=== PATIENT | female | born 1955 | race Caucasian/White ===

== ENCOUNTER 2016-12-09 11:49 | Emergency (ER) | payer BC ==
[~2016-12-09] VITALS: Ht 165.1 cm; Wt 55.8 kg
[2016-12-09] MEDS ORDERED: CYMBALTA60 MG PO (12:00)
[2016-12-09] MEDS ORDERED: CHANTIX1 MG PO (12:00)
[2016-12-09] MEDS ORDERED: ASPIRIN81 MG PO (12:01)
[2016-12-09] MEDS ORDERED: PREDNISOLONE SO10 MG PO (13:43)
== END 2016-12-09 13:59 | disposition home or self-care (01) ==
LOC: ED 11:49
DX: G51.0 Bell's palsy (principal); Z87.891 Personal history of nicotine dependence; Z98.51 Tubal ligation status; Z79.899 Other long term (current) drug therapy; Z79.01 Long term (current) use of anticoagulants; Z79.82 Long term (current) use of aspirin
CPT/HCPCS: 99283

== ENCOUNTER 2023-01-12 18:43 | Observation (INO) | payer BC, MEDICARE ==
[~2023-01-12] VITALS: Ht 317.5 cm; Wt 47.0 kg
--- OUTSIDE RECORDS SUMMARY | ~2023-01-12 | XMS | Continuity of Care Document ---
Demographics + + + | Address | [address] | | | [place] [address] | + + + | Preferred Language | Unknown | + + + | Marital Status | Never | + + + | Adventist Affiliation | Unknown | + + + | Race | White | + + + | Ethnic Group | Unknown | + + + Author + + + | Author | [facility] | + + + | Organization | [facility] | + + + | Address | [address] | | | [place] [address] | + + + | Phone | | + + + Care Team Providers + + + + | Care Architectural Engineer Name | Role | Phone | + + + + Unavailable | Unavailable | + + + + Allergies and Intolerances + + + + + + | date | description | facility | reaction | severity | + + + + + + | (no date) | No Known | [facility] | (no reaction) | (no severity) | | | Allergies | | | | + + + + + + Encounters No information. Functional Status No information. Immunizations No information. Medications No information. Problems + + + + | date | description | facility | + + + + | 2022-05-31 09:42 | MALIGNANT NEOPLASM OF | [facility] | | | RIGHT KIDNEY, EXCEPT RENAL | | | | PELVIS | | + + + + | 2022-05-31 09:42 | SECONDARY MALIGNANT | [facility] | | | NEOPLASM OF RIGHT LUNG | | + + + + | 2022-05-31 09:42 | HYPOTHYROIDISM, | [facility] | | | UNSPECIFIED | | + + + + | 2022-06-21 10:38 | CROHN'S DISEASE, | [facility] | | | UNSPECIFIED, WITHOUT | | | | COMPLICATIONS | | + + + + | 2022-07-12 10:31 | [facility]IGNANT NEOPLASM OF | [facility] | | | RIGHT KIDNEY, EXCEPT RENAL | | | | PELVIS | | + + + + | 2022-07-12 10:31 | SECONDARY MALIGNANT | [facility] | | | NEOPLASM OF RIGHT LUNG | | + + + + | 2022-07-12 10:31 | HYPOTHYROIDISM, | [facility] | | | UNSPECIFIED | | + + + + | 2022-07-13 14:31 | MALIGNANT NEOPLASM OF | [facility] | | | RIGHT KIDNEY, EXCEPT RENAL | | | | PELVIS | | + + + + | 2022-07-13 14:31 | SECONDARY MALIGNANT | [facility] | | | NEOPLASM OF RIGHT LIOR | | + + + + | 2022-08-02 10:18 | MALIGNANT NEOPLASM OF UNSP | [facility] | | | KIDNEY, EXCEPT RENAL PE | | + + + + | 2022-08-02 10:18 | ENCOUNTER FOR | [facility] | | | ANTINEOPLASTIC CHEMOTHERAPY | | | | | | + + + + | 2022-08-23 10:05 | MALIGNANT NEOPLASM OF | [facility] | | | RIGHT KIDNEY, EXCEPT RENAL | | | | PELVIS | | + + + + | 2022-08-23 10:05 | SECONDARY MALIGNANT | [facility] | | | NEOPLASM OF RIGHT LUNG | | + + + + | 2022-09-13 10:17 | MALIGNANT NEOPLASM OF UNSP | [facility] | | | KIDNEY, EXCEPT RENAL | | | | PELVIS | | + + + + | 2022-10-04 10:42 | MALIGNANT NEOPLASM OF UNSP | [facility] | | | KIDNEY, EXCEPT RENAL | | | | PELVIS | | + + + + | 2022-10-04 10:42 | ENCOUNTER FOR | [facility] | | | ANTINEOPLASTIC CHEMOTHERAPY | | | | | | + + + + | 2022-10-25 10:19 | MALIGNANT NEOPLASM OF | [facility] | | | RIGHT KIDNEY, EXCEPT RENAL | | | | PELVIS | | + + + + | 2022-10-25 10:19 | SECONDARY MALIGNANT | [facility] | | | NEOPLASM OF RIGHT LUNG | | + + + + | 2022-10-26 07:55 | MALIGNANT NEOPLASM OF | [facility] | | | RIGHT KIDNEY, EXCEPT RENAL | | | | PELVIS | | + + + + | 2022-10-26 07:55 | OTHER NONSPECIFIC ABNORMAL | [facility] | | | FINDING OF LUNG FIELD | | + + + + | 2022-11-15 10:20 | MALIGNANT NEOPLASM OF | [facility] | | | RIGHT KIDNEY, EXCEPT RENAL | | | | P | | + + + + | 2022-11-15 10:20 | SECONDARY MALIGNANT | [facility] | | | NEOPLASM OF RIGHT LUNG | | + + + + | 2022-11-15 10:20 | HYPOTHYROIDISM, | [facility] | | | UNSPECIFIED | | + + + + | 2022-11-15 10:20 | Rash and other nonspecific | [facility] | | | skin eruption | | + + + + | 2022-11-15 10:20 | ENCOUNTER FOR | [facility] | | | ANTINEOPLASTIC CHEMOTHERAPY | | | | | | + + + + | 2022-12-13 09:49 | MALIGNANT NEOPLASM OF UNSP | [facility] | | | PART OF RIGHT BRONCHUS | | + + + + | 2022-12-13 09:49 | MALIGNANT NEOPLASM OF | [facility] | | | RIGHT KIDNEY, EXCEPT RENAL | | | | PELVIS | | + + + + | 2022-12-13 09:49 | HYPOTHYROIDISM, | [facility] | | | UNSPECIFIED | | + + + + | 2022-12-13 09:49 | Rash and other nonspecific | [facility] | | | skin eruption | | + + + + | 2023-01-03 09:52 | MALIGNANT NEOPLASM OF | [facility] | | | RIGHT KIDNEY, EXCEPT RENAL | | | | PELVIS | | + + + + | 2023-01-03 09:52 | SECONDARY MALIGNANT | [facility] | | | NEOPLASM OF RIGHT LUNG | | + + + + Procedures No information. Results/Labs No information. Social History No information. Vital Signs No information."
--- OUTSIDE RECORDS SUMMARY | ~2023-01-12 | XMS | Continuity of Care Document ---
Demographics + + + | Address | [address] | | | [place] [address] | + + + | Preferred Language | Unknown | + + + | Marital Status | Never | + + + | Yarsanism Affiliation | Unknown | + + + | Race | White | + + + | Ethnic Group | Unknown | + + + Author + + + | Author | [facility] | + + + | Organization | [facility] | + + + | Address | [address] | | | [place] [address] | + + + | Phone | | + + + Care Team Providers + + + + | Care Carburetor Mechanic Name | Role | Phone | + [...]
--- OUTSIDE RECORDS SUMMARY | ~2023-01-12 | XMS | Continuity of Care Document ---
Demographics + + + | Address | [address] | | | [place] [address] | + + + | Preferred Language | Unknown | + + + | Marital Status | Never | + + + | Mandaen Affiliation | Unknown | + + + | Race | White | + + + | Ethnic Group | Unknown | + + + Author + + + | Author | [facility] | + + + | Organization | [facility] | + + + | Address | [address] | | | [place] [address] | + + + | Phone | | + + + Care Team Providers + + + + | Care Home Demonstration Agent Name | Role | Phone | + [...]
[~2023-01-12 18:43] MED LIST: ASPIRIN81 MG PO; CYMBALTA60 MG PO; PREDNISOLONE SO10 MG PO; VARENICLINE TART1 MG PO
--- OUTSIDE RECORDS SUMMARY | 2023-01-12 18:46 | XMS ---
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 Sebas has no Care Guidelines for this patient. Arnoldo VISIT COUNT (12 MO.) 1 [facility] TOTAL 1 NOTE: Visits indicate total known visits. ED/C VISIT TRACKING (12 MO.) 01/12/2023 18:44 [facility] [place] TYPE: Emergency COMPLAINT: - SOB INPATIENT VISIT TRACKING (12 MO.) 02/21/2022 07:33 [facility] [place] TYPE: Surgery DIAGNOSES: - Malignant neoplasm of right kidney, except renal pelvis [email or web address]
[2023-01-12 19:02] LABS: MCH 30.8 (27-36)
[2023-01-12 19:04] LABS: HEMATOCRIT 36.2 % (35.0-50.0); MCV 93.3 fl (81-99); PLATELET COUNT 362 K/uL (140-440); RBC 3.88 M/ul (4.3-5.7); RDW 14.9 (10.5-15.0)
[2023-01-12 19:14] LABS: BANDS, MANUAL DIFF 1; LYMPHOCYTES, MANUAL DIFF 8; MONOCYTES, MANUAL DIFF 1; NEUTROPHILS, MANUAL DIFF 90
[2023-01-12 19:17] LABS: ALBUMIN 3.5 g/dL (3.4-5.0); ALBUMIN/GLOBULIN RATIO 0.81 (1.1-2.4); ANION GAP 13.1 (7-21); BILIRUBIN, TOTAL 0.3 ng/dL (0.2-1.0); BUN/CREATININE RATIO 10.9 (6.0-28.6); CALCIUM 9.6 mg/dL (8.5-10.1); CREATININE, SERUM 1.1 mg/dL (0.55-1.02); MAGNESIUM 1.8 mg/dL (1.8-2.4); POTASSIUM 4.1 mmol/L (3.5-5.1); PROTEIN, TOTAL 7.8 g/dL (6.4-8.2)
[2023-01-12 19:55] LABS: INFLUENZA B NAA NEGATIVE (NEGATIVE); RESPIRATORY SYNCYTIAL VIR NAA NEGATIVE (NEGATIVE)
[2023-01-12 22:16] VITALS: BP 145/95
[2023-01-12] MEDS ORDERED: GABAPENTIN300 MG PO (22:20)
[2023-01-12] MEDS ORDERED: SYNTHROID50 MCG PO (22:23)
--- NOTE | 2023-01-12 22:57 | NUR ---
PT CALLS FOR A BEEPING PUMP, RESOLVED. IV SALINE LOCKED. PT STATES NO OTHER NEEDS AT THIS TIME. CALL LIGHT IN REACH.
--- NOTE | 2023-01-12 23:13 | NUR ---
PATIENT ARRIVED TO THE FLOOR VIA STRETCHER TO THE BR. PATIENT ABLE TO VOID. PATIENT IS NOW IN BED RESTING. PATIENT REMAINS ON 1L VIA NC. PATIENT DENIES ANY SOB. PATIENTS VITALS TAKEN AND RECORDED. PATIENTS ADMISSION COMPLETED BY CARLYN CASE. PATIENTS ASSESMENT COMPLETED. PATIENT DENIES ANY PAIN. PATIENT IS AAOX4. PATIENT PROVIDED WITH FRESH ICE WATER AND SANDWICH BOX. PATIENT DENIES ANY FURTHER NEEDS. CALL LIGHT IN REACH.
--- NOTE | 2023-01-12 23:40 | NUR ---
PATIENT IS RESTING IN BED WATCHING TV AND EATING A SANDWICH BOX. PATIENT DENIES ANY NEEDS. CALL LIGHT IN REACH.
--- NOTE | 2023-01-12 23:53 | NUR ---
CALL LIGHT ANSWERED. PT UP TO BR WITH MINIMAL SBA TO VOID 300 ML CLEAR YELLOW URINE. GAIT STEADY. BACK TO BED, ELIJAH WELL. WARM BLANKET PROVIDED. LINENS PROVIDED FOR TO STAY THE NIGHT. NO FURTHER NEEDS.
[2023-01-13] MEDS ORDERED: LOMOTIL TABLET1 EACH PO (00:18)
[2023-01-13 02:00] VITALS: BP 139/76
--- NOTE | 2023-01-13 02:19 | NUR ---
PATIENTS VITALS TAKEN AND RECORDED. INTAKE AND OUTPUT RECORDED. PATIENT IS ON 2L VIA NC. PATIENT DENIES ANY SOB. PATIENT PROVIDED WITH FRESH ICE WATER. PATIENT DENIES ANY FURTHER NEEDS. ASLEEP ON THE COUCH. CALL LIGHT IN REACH.
--- NOTE | 2023-01-13 02:28 | NUR ---
RT IN ROOM TO ADMIN NEB. RT TITRATED PATIENT TO 1L VIA NC.
--- NOTE | 2023-01-13 04:05 | NUR ---
PATIENT IS RESTING IN BED WITH EYES CLOSED, RR 15. PATIENTS ASLEEP ON THE COUCH. CALL LIGHT IN REACH.
[2023-01-13 05:16] LABS: BASOPHILS 0.5 % (0-2); EOSINOPHILS 0.2 % (0-6); HEMATOCRIT 35.1 % (35.0-50.0); HEMOGLOBIN 11.5 g/dL (12.0-18.0); LYMPHOCYTES 9.3 % (24-44); MCH 30.8 (27-36); MCHC 32.9 g/dl (30-36); MCV 93.7 fl (81-99); MONOCYTES 0.6 % (0-12); NEUTROPHILS 89.4 % (39-80); PLATELET COUNT 304 K/uL (140-440); RBC 3.75 M/ul (4.3-5.7); RDW 14.8 (10.5-15.0)
[2023-01-13 05:26] LABS: ALBUMIN 3.2 g/dL (3.4-5.0); ALBUMIN/GLOBULIN RATIO 0.76 (1.1-2.4); ANION GAP 11.2 (7-21); BILIRUBIN, TOTAL 0.2 ng/dL (0.2-1.0); CALCIUM 9.6 mg/dL (8.5-10.1); MAGNESIUM 1.8 mg/dL (1.8-2.4); POTASSIUM 4.2 mmol/L (3.5-5.1); PROTEIN, TOTAL 7.4 g/dL (6.4-8.2)
--- NOTE | 2023-01-13 05:33 | NUR ---
PATIENT IS RESTING IN BED WITH EYES CLSOED, RR 15. PATIENTS ASLEEP ON THE COUCH. CALL LIGHT IN REACH.
[2023-01-13 05:34] VITALS: BP 136/68
--- NOTE | 2023-01-13 05:34 | NUR ---
LAB IN ROOM TO DRAW BLOOD. PATIENTS VITALS TAKEN AND RECORDED. INTAKE AND OUTPUT RECORDED. PATIENT DENIES ANY PAIN OR SOB. IV FLUSHED AND SL PER ORDER. PATIENT DENIES AND NEEDS. CALL LIGHT IN REACH.
--- NOTE | 2023-01-13 05:57 | EKG ---
[facility] [address] [place], [place] [address] Signed Normal sinus rhythm Cannot rule out Anterior infarct , age undetermined Abnormal ECG No previous ECGs available Confirmed by LAUREN CUELLAR MD ([id number]) on 01/13/2023 5:56:55 AM Electronically Signed By: LAUREN CUELLAR 01/13/23 0557 PATIENT NAME: BRANDIE FORD Electrocardiogram DATE OF : 57 PHYSICIAN: LAUREN CUELLAR REPORT #: [id number] REPORT IS CONFIDENTIAL AND NOT TO BE RELEASED WITHOUT AUTHORIZATION
--- NOTE | 2023-01-13 06:36 | NUR ---
PATIENT UP TO BR. PATIENT HAD BM. PATIENT IS BACK IN BED RESTING. PATIENT DENIES ANY FURTHER NEEDS. CALL LIGHT IN REACH.
--- NOTE | 2023-01-13 07:23 | NUR ---
RECEIVED REPORT FROM RESIDENTIAL FRAMING CARPENTER RN. PT IS RESTING IN BED. AT BEDSIDE. NO NEEDS VOICED AT THE MOMENT. CALL LIGHT WITHIN REACH.
[2023-01-13 09:43] VITALS: BP 136/64
[2023-01-13] MEDS ORDERED: CLOBETASOL PROP15 GM TOP (09:50)
--- NOTE | 2023-01-13 09:50 | NUR ---
PT UP TO BATHROOM. WAS ABLE TO ASSIST. PT O2 SATS 96 ON ROOM AIR EVEN AMBULATING TO THE BATHROOM. PT DID REQUEST BREATHING TREATMENT FOR COUGH. ADMINISTERED BREATHING TREATMENT. PT DENYING PAIN OTHERWISE. NO FURTHER NEEDS VOICED. CALL LIGHT WITHIN REACH.
[2023-01-13] MEDS ORDERED: VENTOLIN HFA18 GM INH (09:52)
[2023-01-13] MEDS ORDERED: AMOX TR-K CLV1 EAC1 PO (11:29)
[2023-01-13] MEDS ORDERED: DOXYCYCLINE HY100 MG PO (11:30)
[2023-01-13] MEDS ORDERED: DULOXETINE HCL30 MG PO (11:32)
--- NOTE | 2023-01-13 11:39 | NUR ---
MED REC COMPLETE
[2023-01-13 13:38] VITALS: BP 126/69
== END 2023-01-13 13:55 | disposition home or self-care (01) ==
LOC: ED 18:43 → MS 18:45
PROVIDERS: Emergency Medicine; Family Medicine; ADMIT Family Medicine; ATTEND Family Medicine
DX: J18.9 Pneumonia, unspecified organism (principal); J96.01 Acute respiratory failure with hypoxia; C20 Malignant neoplasm of rectum; C78.00 Secondary malignant neoplasm of unspecified lung; I10 Essential (primary) hypertension; M54.9 Dorsalgia, unspecified; G89.29 Other chronic pain; E03.9 Hypothyroidism, unspecified; Z66 Do not resuscitate; Z20.822 Contact with and (suspected) exposure to COVID-19; Z87.891 Personal history of nicotine dependence; Z79.82 Long term (current) use of aspirin; Z79.899 Other long term (current) drug therapy
CPT/HCPCS: 36415; 71045; 80053; 83735; 83880; 84484; 85025; 87502; 93005; 93010; 94640; 94760; C9803; J0456; J0696; J2930; J7060; U0002

== ENCOUNTER 2023-03-03 04:48 | Emergency (ER) | payer BC ==
[~2023-03-03] VITALS: Ht 165.1 cm; Wt 48.1 kg
[~2023-03-03 04:48] MED LIST changes: +AMOX TR-K CLV1 EAC1 PO; +CLOBETASOL PROP15 GM TOP; +DOXYCYCLINE HY100 MG PO; +DULOXETINE HCL30 MG PO; +GABAPENTIN300 MG PO; +LOMOTIL TABLET1 EACH PO; +SYNTHROID50 MCG PO; +VENTOLIN HFA18 GM INH
--- OUTSIDE RECORDS SUMMARY | 2023-03-03 04:51 | XMS ---
PreManage Notification: BRANDIE FORD Security Cloth Presser Events No recent Security Events currently on file CRITERIA MET - [facility] CARE PROVIDERS There are no care providers on record at this time. Sebas has no Care Guidelines for this patient. Arnoldo VISIT COUNT (12 MO.) 2 ROWAN Madrigal TOTAL 2 NOTE: Visits indicate total known visits. ED/C VISIT TRACKING (12 MO.) 03/03/2023 04:48 [facility] TYPE: Emergency COMPLAINT: - SHORTNESS OF BREATH 01/12/2023 18:44 [facility] [place] TYPE: Emergency COMPLAINT: - SOB INPATIENT VISIT TRACKING (12 MO.) 01/12/2023 18:45 [facility] TYPE: Observation COMPLAINT: - PNEUMONIA DIAGNOSES: - Acute respiratory failure with hypoxia - Contact with and (suspected) exposure to COVID-19 - Do not resuscitate - Dorsalgia, unspecified - Essential (primary) hypertension - Hypothyroidism, unspecified - assisted (current) use of aspirin - Malignant neoplasm of rectum - Other chronic pain - Other webbing inspector (current) drug therapy - Personal history of nicotine dependence - Pneumonia, unspecified organism - Secondary malignant neoplasm of unspecified lung [email or web address]
[2023-03-03 05:10] LABS: BASOPHILS 0.9 % (0-2); EOSINOPHILS 15.8 % (0-6); HEMATOCRIT 39.4 % (35.0-50.0); HEMOGLOBIN 12.9 g/dL (12.0-18.0); LYMPHOCYTES 14.8 % (24-44); MCHC 32.7 g/dl (30-36); MCV 94.8 fl (81-99); MONOCYTES 5.8 % (0-12); NEUTROPHILS 62.7 % (39-80); PLATELET COUNT 342 K/uL (140-440); RBC 4.15 M/ul (4.3-5.7); RDW 14.4 (10.5-15.0)
[2023-03-03 05:32] LABS: ALBUMIN/GLOBULIN RATIO 0.95 (1.1-2.4); BILIRUBIN, TOTAL 0.5 ng/dL (0.2-1.0); BUN/CREATININE RATIO 21.78 (6.0-28.6); CALCIUM 9.9 mg/dL (8.5-10.1); CREATININE, SERUM 1.01 mg/dL (0.55-1.02); MAGNESIUM 1.8 mg/dL (1.8-2.4); PROTEIN, TOTAL 8.2 g/dL (6.4-8.2)
[2023-03-03 06:09] LABS: INFLUENZA B NAA NEGATIVE (NEGATIVE); RESPIRATORY SYNCYTIAL VIR NAA NEGATIVE (NEGATIVE)
[2023-03-03] MEDS ORDERED: HYDROCODON-ACE1 EA10 PO (06:48)
[2023-03-03 07:08] VITALS: BP 115/77
--- NOTE | 2023-03-03 21:42 | EKG ---
[facility] [address] [place] [address] Signed Normal sinus rhythm Possible Left atrial enlargement Rightward axis Borderline ECG When compared with ECG of 12-JAN-2023 18:49, Non-specific change in ST segment in V2 is now present Confirmed by Zack Marx MD () on 03/03/2023 9:42:37 PM Electronically Signed By: ZACK MARX MD 03/03/232141 PATIENT NAME: BRANDIE FORD Electrocardiogram DATE OF : 57 PHYSICIAN: ZACK MARX MD REPORT #: [id number] REPORT IS CONFIDENTIAL AND NOT TO BE RELEASED WITHOUT AUTHORIZATION
== END 2023-03-03 07:08 | disposition home or self-care (01) ==
LOC: ED 04:48
PROVIDERS: Emergency Medicine
DX: J44.1 Chronic obstructive pulmonary disease with (acute) exacerbation (principal); Z87.891 Personal history of nicotine dependence; Z79.82 Long term (current) use of aspirin; Z79.899 Other long term (current) drug therapy; Z79.890 Hormone replacement therapy; Z20.822 Contact with and (suspected) exposure to COVID-19
CPT/HCPCS: 36415; 70450; 71045; 80053; 83735; 83880; 84484; 85025; 87502; 93005; 93010; 94640; 94644; A9270; C9803; J1170; J2405; J2930; U0002

== ENCOUNTER 2023-04-22 21:26 | Emergency (ER) | payer BC ==
[~2023-04-22] VITALS: Ht 165.1 cm; Wt 46.7 kg
[~2023-04-22 21:26] MED LIST changes: +HYDROCODON-ACE1 EA10 PO
--- OUTSIDE RECORDS SUMMARY | 2023-04-22 21:28 | XMS ---
PreManage Notification: BRANDIE FORD Security Pest Control Service Representative Events No recent Security Events currently on file CRITERIA MET - [facility] CARE PROVIDERS There are no care providers on record at this time. Sebas has no Care Guidelines for this patient. Arnoldo VISIT COUNT (12 MO.) 3 ROWAN Madrigal TOTAL 3 NOTE: Visits indicate total known visits. ED/C VISIT TRACKING (12 MO.) 04/22/2023 21:27 [facility] [place] TYPE: Emergency COMPLAINT: - SOB 03/03/2023 04:48 [facility] TYPE: Emergency COMPLAINT: - SHORTNESS OF BREATH DIAGNOSES: - Chronic obstructive pulmonary disease with (acute) exacerbation - Contact with and (suspected) exposure to COVID-19 - Hormone replacement therapy - bed bug exterminator (current) use of aspirin - Malignant neoplasm of unspecified kidney, except renal pelvis - Other intermediate accountant (current) drug therapy - Personal history of nicotine dependence - Secondary malignant neoplasm of unspecified lung - Shortness of breath 01/12/2023 18:44 [facility] TYPE: Emergency COMPLAINT: - SOB INPATIENT VISIT TRACKING (12 MO.) 01/12/2023 18:45 [facility] TYPE: Observation COMPLAINT: - PNEUMONIA DIAGNOSES: - Acute respiratory failure with hypoxia - Contact with and (suspected) exposure to COVID-19 - Do not resuscitate - Dorsalgia, unspecified - Essential (primary) hypertension - Hypothyroidism, unspecified - custodial (current) use of aspirin - Malignant neoplasm of rectum - Other chronic pain - Other intermediate accountant (current) drug therapy - Personal history of nicotine dependence - Pneumonia, unspecified organism - Secondary malignant neoplasm of unspecified lung [email or web address]
[2023-04-22 21:53] LABS: BASOPHILS 0.4 % (0-2); EOSINOPHILS 10.4 % (0-6); HEMATOCRIT 34.6 % (35.0-50.0); HEMOGLOBIN 11.6 g/dL (12.0-18.0); LYMPHOCYTES 14.7 % (24-44); MCH 31.2 (27-36); MCHC 33.4 g/dl (30-36); MCV 93.4 fl (81-99); MONOCYTES 6.9 % (0-12); NEUTROPHILS 67.6 % (39-80); PLATELET COUNT 331 K/uL (140-440); RBC 3.71 M/ul (4.3-5.7); RDW 14.3 (10.5-15.0)
[2023-04-22 22:18] LABS: ALBUMIN 3.6 g/dL (3.4-5.0); ALBUMIN/GLOBULIN RATIO 0.95 (1.1-2.4); ANION GAP 7.1 (7-21); BILIRUBIN, TOTAL 0.4 ng/dL (0.2-1.0); BUN/CREATININE RATIO 18.27 (6.0-28.6); CALCIUM 9.6 mg/dL (8.5-10.1); CREATININE, SERUM 0.93 mg/dL (0.55-1.02); MAGNESIUM 1.7 mg/dL (1.8-2.4); POTASSIUM 4.1 mmol/L (3.5-5.1); PROTEIN, TOTAL 7.4 g/dL (6.4-8.2)
[2023-04-22] MEDS ORDERED: SYMBICORT 16010.2 GM INH (22:34)
[2023-04-22] MEDS ORDERED: COMBIVENT RESPIM4 GM INH (22:35)
[2023-04-23 00:20] VITALS: BP 168/94
--- NOTE | 2023-04-23 14:41 | EKG ---
[facility] [address] [place] [address] Signed Normal sinus rhythm Right atrial enlargement Borderline ECG When compared with ECG of 03-MAR-2023 05:03, No significant change was found Confirmed by HUGO BURNS MD ([id number]) on 04/23/2023 2:41:27 PM Electronically Signed By: HUGO BURNS 04/23/23 1441 PATIENT NAME: BRANDIE FORD Electrocardiogram DATE OF : 57 PHYSICIAN: HUGO BURNS REPORT #: [id number] REPORT IS CONFIDENTIAL AND NOT TO BE RELEASED WITHOUT AUTHORIZATION
== END 2023-04-23 00:20 | disposition home or self-care (01) ==
LOC: ED 21:26
PROVIDERS: Family Medicine
DX: J43.9 Emphysema, unspecified (principal); Z87.891 Personal history of nicotine dependence; Z79.899 Other long term (current) drug therapy; Z79.890 Hormone replacement therapy
CPT/HCPCS: 36415; 71045; 80053; 83735; 83880; 84484; 85025; 85379; 93005; 93010; 94640; J2930

== ENCOUNTER 2023-04-27 04:57 | Emergency (ER) | payer BC ==
[~2023-04-27] VITALS: Ht 165.1 cm; Wt 43.1 kg
[~2023-04-27 04:57] MED LIST changes: +COMBIVENT RESPIM4 GM INH; +SYMBICORT 16010.2 GM INH
--- OUTSIDE RECORDS SUMMARY | 2023-04-27 05:05 | XMS ---
PreManage Notification: BRANDIE FORD Security Stockholder Events No recent Security Events currently on file CRITERIA MET - [facility] - 2 Visits in 30 Days CARE PROVIDERS There are no care providers on record at this time. Sebas has no Care Guidelines for this patient. [facility] MO[facility] NOTE: Visits indicate total known visits. ED/C VISIT TRACKING (12 MO.) [facility] COMPLAINT: - CHEST PAIN, SOB 04/22/2023 21:27 [facility] TYPE: Emergency COMPLAINT: - SOB DIAGNOSES: - Emphysema, unspecified - Hormone replacement therapy - Other long goods drier (current) drug therapy - Personal history of nicotine dependence - Shortness of breath 03/03/2023 04:48 [facility] TYPE: Emergency COMPLAINT: - SHORTNESS OF BREATH DIAGNOSES: - Chronic obstructive pulmonary disease with (acute) exacerbation - Contact with and (suspected) exposure to COVID-19 - Hormone replacement therapy - skilled nursing (current) use of aspirin - Malignant neoplasm of unspecified kidney, except renal pelvis - Other long goods drier (current) drug therapy - Personal history of nicotine dependence - Secondary malignant neoplasm of unspecified lung - Shortness of breath 01/12/2023 18:44 [facility] TYPE: Emergency COMPLAINT: - SOB INPATIENT VISIT TRACKING (12 MO.) 01/12/2023 18:[address] [facility] [place] TYPE: Observation COMPLAINT: - PNEUMONIA DIAGNOSES: - Acute respiratory failure with hypoxia - Contact with and (suspected) exposure to COVID-19 - Do not resuscitate - Dorsalgia, unspecified - Essential (primary) hypertension - Hypothyroidism, unspecified - skilled nursing (current) use of aspirin - Malignant neoplasm of rectum - Other chronic pain - Other long goods drier (current) drug therapy - Personal history of nicotine dependence - Pneumonia, unspecified organism - Secondary malignant neoplasm of unspecified lung [email or web address]
[2023-04-27 05:40] LABS: BASOPHILS 0.6 % (0-2); EOSINOPHILS 4.1 % (0-6); HEMATOCRIT 35.9 % (35.0-50.0); LYMPHOCYTES 11.9 % (24-44); MCH 30.6 (27-36); MCHC 33.3 g/dl (30-36); MCV 91.9 fl (81-99); NEUTROPHILS 77.4 % (39-80); PLATELET COUNT 369 K/uL (140-440)
[2023-04-27 06:02] LABS: ALBUMIN 3.6 g/dL (3.4-5.0); ANION GAP 8.9 (7-21); BILIRUBIN, TOTAL 0.6 ng/dL (0.2-1.0); BUN/CREATININE RATIO 21.05 (6.0-28.6); CALCIUM 9.8 mg/dL (8.5-10.1); CREATININE, SERUM 0.95 mg/dL (0.55-1.02); POTASSIUM 3.9 mmol/L (3.5-5.1); PROTEIN, TOTAL 7.2 g/dL (6.4-8.2)
[2023-04-27] MEDS ORDERED: HYDROCODON-ACE1 EA10 PO (06:30)
[2023-04-27 06:46] VITALS: BP 130/70
--- NOTE | 2023-04-28 05:58 | EKG ---
[facility] [address] [place] [address] Signed Normal sinus rhythm Right atrial enlargement Rightward axis Abnormal ECG When compared with ECG of 22-APR-2023 21:35, No significant change was found Confirmed by LAUREN CUELLAR MD ([id number]) on 04/28/2023 5:58:40 AM Electronically Signed By: LAUREN CUELLAR 04/28/23 0558 PATIENT NAME: BRANDIE FORD Electrocardiogram DATE OF : 57 PHYSICIAN: LAUREN CUELLAR REPORT #: [id number] REPORT IS CONFIDENTIAL AND NOT TO BE RELEASED WITHOUT AUTHORIZATION
[2023-04-28] MEDS ORDERED: ONDANSETRON ODT8 MG PO (16:52)
[2023-04-28] MEDS ORDERED: DILAUDID2 MG PO (16:52)
== END 2023-04-27 06:47 | disposition home or self-care (01) ==
LOC: ED 04:57
PROVIDERS: Family Medicine
DX: I31.39 Other pericardial effusion (noninflammatory) (principal); C34.90 Malignant neoplasm of unspecified part of unspecified bronchus or lung; J44.9 Chronic obstructive pulmonary disease, unspecified; G89.29 Other chronic pain; Z87.891 Personal history of nicotine dependence; Z79.51 Long term (current) use of inhaled steroids; Z79.82 Long term (current) use of aspirin; Z79.890 Hormone replacement therapy; Z79.899 Other long term (current) drug therapy
CPT/HCPCS: 36415; 71045; 80053; 83880; 84484; 85025; 85379; 93005; 93010; 96374; 99285-25; A9270; J2270

== ENCOUNTER 2023-04-28 13:39 | Emergency (ER) | payer BC ==
[~2023-04-28] VITALS: Ht 165.1 cm; Wt 43.5 kg
[2023-04-28 15:03] LABS: INFLUENZA B NAA NEGATIVE (NEGATIVE); RESPIRATORY SYNCYTIAL VIR NAA NEGATIVE (NEGATIVE)
[2023-04-28 15:09] LABS: BASOPHILS 0.3 % (0-2); EOSINOPHILS 5.8 % (0-6); HEMATOCRIT 34.9 % (35.0-50.0); HEMOGLOBIN 11.7 g/dL (12.0-18.0); LYMPHOCYTES 8.2 % (24-44); MCH 31.1 (27-36); MCHC 33.6 g/dl (30-36); MCV 92.5 fl (81-99); MONOCYTES 5.6 % (0-12); NEUTROPHILS 80.1 % (39-80); PLATELET COUNT 354 K/uL (140-440); RBC 3.78 M/ul (4.3-5.7); RDW 13.9 (10.5-15.0)
[2023-04-28 15:45] LABS: ALBUMIN 3.7 g/dL (3.4-5.0); ALBUMIN/GLOBULIN RATIO 1.09 (1.1-2.4); ANION GAP 9.6 (7-21); BILIRUBIN, TOTAL 0.4 ng/dL (0.2-1.0); BUN/CREATININE RATIO 21.34 (6.0-28.6); CALCIUM 9.5 mg/dL (8.5-10.1); CREATININE, SERUM 0.89 mg/dL (0.55-1.02); MAGNESIUM 1.7 mg/dL (1.8-2.4); POTASSIUM 3.6 mmol/L (3.5-5.1); PROTEIN, TOTAL 7.1 g/dL (6.4-8.2)
[2023-04-28] MEDS ORDERED: ONDANSETRON ODT8 MG PO (16:52)
[2023-04-28] MEDS ORDERED: DILAUDID2 MG PO (16:52)
[2023-04-28 17:10] VITALS: BP 158/85
--- NOTE | 2023-04-29 05:51 | EKG ---
[facility] [address] [place] [address] Signed Sinus tachycardia Biatrial enlargement Rightward axis Pulmonary disease pattern Abnormal ECG When compared with ECG of 27-APR-2023 05:29, No significant change was found Confirmed by LAUREN CUELLAR MD ([id number]) on 04/29/2023 5:50:54 AM Electronically Signed By: LAUREN CUELLAR 04/29/23 0551 PATIENT NAME: BRANDIE FORD Electrocardiogram DATE OF : 57 PHYSICIAN: LAUREN CUELLAR REPORT #: [id number] REPORT IS CONFIDENTIAL AND NOT TO BE RELEASED WITHOUT AUTHORIZATION
== END 2023-04-28 17:10 | disposition home or self-care (01) ==
LOC: ED 13:39
PROVIDERS: Emergency Medicine
DX: R07.89 Other chest pain (principal); C34.90 Malignant neoplasm of unspecified part of unspecified bronchus or lung; J44.9 Chronic obstructive pulmonary disease, unspecified; Z11.52 Encounter for screening for COVID-19; Z87.891 Personal history of nicotine dependence; Z79.51 Long term (current) use of inhaled steroids; Z79.82 Long term (current) use of aspirin; Z79.890 Hormone replacement therapy; Z79.899 Other long term (current) drug therapy
CPT/HCPCS: 36415; 80053; 83735; 84484; 85025; 87502; 93005; 93010; 96374; 99285-25; J1170; U0002